=== PATIENT | female | born 1980 | race Caucasian/White ===

== ENCOUNTER 2024-05-26 13:52 | Emergency (ER) | payer MEDICAID, SELFPAY ==
[2024-05-26 13:53] VITALS: BMI 29.0
[2024-05-26 14:28] VITALS: BP 134/82; PULSE 75; RESP 16; TEMP 37.2; O2SAT 99
--- NOTE | 2024-05-26 15:11 | XR_ITS ---
Examination: Pelvic ultrasound, transabdominal, complete Technique: Transabdominal ultrasound of the pelvis performed using grayscale imaging Date and time of exam: May 26, 2024 1850 hrs. Indications: Foreign body in the vagina today Findings: Uterus 7.3 cm endometrial stripe 0.7 cm No foreign body seen Right ovary obscured by bowel gas Left ovary 2.2 cm arterial flow 25 mm cyst Impression: No foreign body depicted
--- NOTE | 2024-05-26 16:10 | PD.EDADULT ---
ED General RME/HPI General Chief complaint: General Adult/Misc Complain Stated complaint: STUCK TAMPON SINCE LAST NIGHT Time Seen by Provider: 05/26/24 14:14 Arrival date/time: 05/26/24 13:52 This is a 44 year old female with complaints of tampon being stuck in her vagina. Patient thinks she placed a tampon in last night and when she tried to remove it she could not. Pt thinks it went high in her vagina. Patient reports she does not emember removing it. Related Data Home Medications ?Medication ?Instructions ?Recorded ?Confirmed Trazodone Hcl (Trazodone) 100 mg PO HS ##0 04/16/09 Amitriptyline Hcl 25 mg PO QHS ##0 07/27/09 HYDROCODONE BITARTRATE/APAP (NORCO 10 mg PO Q4-6HRPRN ##0 07/27/09 [id number]) Propranolol Hcl * (INDERAL *) 10 mg PO BID ##0 07/27/09 Previous Rx's ?Medication ?Instructions ?Recorded motrin 600mg 1 tab PO q6hprn pain ##30 09/23/12 Allergies Allergy/AdvReac Type Severity Reaction Status Date / Time NKA* Allergy Uncoded 05/26/24 13:55 Review of Systems Review of Systems Systems Reviewed: All systems reviewed, normal except as documented Past Medical History Past Medical History Comments PMH COMMENT: DENIES ED Exam General General appearance: Present alert and in no apparent distress Head Head exam: Present atraumatic Eye Eye exam: Present normal appearance, PERRL and EOMI ENT ENT exam: Present normal exam, normal oropharynx and mucous membranes moist Neck Neck exam: Present normal inspection, full ROM and trachea midline Chest Chest inspection: Present normal inspection and symmetric chest wall rise Respiratory Respiratory exam: Present normal lung sounds bilaterally Cardiovascular Cardiovascular exam: Present regular rate, normal rhythm and normal heart sounds Abdominal Exam Abdominal exam: Present soft Speculum exam: Present vaginal bleeding and other (no foreign body noted ) Extremities Exam Extremities exam: Present normal inspection and full ROM Back Exam Back exam: Present normal inspection and full ROM Neurological Exam Neurological exam: Present alert, oriented X3 and CN II-XII intact Psychiatric Psychiatric exam: Present normal affect and normal mood Skin Skin exam: Present warm, dry, intact and normal color Course Quality Measures none Orders Category Date Time Status US pelvic complete Stat Exams 05/26/24 15:11 Completed CBC Stat Lab 05/26/24 16:28 Completed Comprehensive Metabolic Panel Stat Lab 05/26/24 16:28 Completed HCG,Qualitative Serum Stat Lab 05/26/24 16:28 Completed Vital Signs Vital signs: Vital Signs Temperature 98.9 F 05/26/24 14:28 Pulse Rate 75 05/26/24 14:28 Respiratory Rate 16 05/26/24 14:28 Blood Pressure 134/82 H 05/26/24 14:28 Pulse Oximetry (%) 99 05/26/24 14:28 Oxygen Delivery Method Room Air 05/26/24 14:28 [facility] Patient data External records reviewed:: [facility] previous records Clinical information provided by:: patient and none Social determinants that could affect healthcare access:: none Patient has the following chronic illnesses:: NONE How is presenting disease/condition affected by chronic disease/condition?: no chronic disease Evaluation data The following diagnostics were reviewed and interpreted by me:: lab results and radiology exam(s) Lab and/or radiology exams considered but not ordered:: NONE Interpretation Summary: SEE NOTE Medications Medications considered but not ordered:: NONE Medication administrations:: NONE Consultations Consultation(s) initiated? (list below): No Diagnosis Differential Diagnosis ED Complaint MDM: Foreign body in vagina, vaginal bleeding Most likely diagnosis given after review of the tests above:: Vaginal bleeding from menstrual cycle. Admission Indicated Admission indicated?: not indicated Explain why admission is indicated or not indicated:: NOT NEEDED Admission Request Was there a request for admission?: No Disposition Plan Disposition Plan: Discharge Discharge Attestation Discharge Attestation: The patient and all family members were given an opportunity to ask questions and understood the discharge instructions. Discharge instructions specifically effects, indications for sooner follow up or return to the emergency department, and the expected course of current diagnosis. Patient condition: Stable Medical Decision Making MDM Narrative MDM Narrative: Patient was set up for a pelvic exam. I assessed with speculum. Patient had vaginal bleeding. I was able to clean vaginal vault with some 4 x 4's to assess a better picture. All 4 x 4 wrist that I used for and were removed. I did not see a foreign body in the vagina. We were able to see the cervix with no issue. I had Collegue Jimi Santana PA also look with a different speculum. He also did not see any foreign body in the vagina. I ordered a pelvic ultrasound and it showed Findings: Uterus 7.3 cm endometrial stripe 0.7 cm No foreign body seen Right ovary obscured by bowel gas Left ovary 2.2 cm arterial flow 25 mm cyst Impression: No foreign body depicted Spoke to patient at length. I let her know that we were not able to see any foreign body in her vagina and ultrasound did not show anything. I let her know that we could order a CT scan of her pelvis to see if it has seen there. Patient states that she does not want a CT scan at this time. She reports that she will follow-up with her primary provider or come back to the emergency room if symptoms change or worsen. Encouraged her to make an appointment with her [employer]. Patient states she does not have 1 right now. Patient comfortable going home at this time. Differential Diagnosis Differential Diagnosis: Foreign body in vagina, vaginal bleeding Lab Data 05/26/24 16:28 05/26/24 16:28 Labs: Lab Results 05/26/24 Range/Units 16:28 WBC 10.2 (3.6-11.0) Thou/mm3 RBC 4.81 (4.00-5.20) Miln/mm3 Hgb 13.4 (12.0-16.0) g/dL Hct 41.1 (36.0-46.0) % MCV 85 (80-100) fL MCH 27.9 (25.0-35.0) pg MCHC 32.6 (31.0-37.0) g/dl RDW Std Deviation 41.6 (36.4-46.3) fL Plt Count 317 (140-440) Thou/mm3 Neut % (Auto) 70 (37-80) % Lymph % (Auto) 21 (10-50) % Centre % (Auto) 7 (0-12) % Eos % (Auto) 2 (0-10) % Baso % (Auto) 1 (0-2.5) % Neut # (Auto) 7.1 (1.8-7.7) Thou/mm3 Lymph # (Auto) 2.1 (1.0-4.8) Thou/mm3 Centre # (Auto) 0.7 (0.0-0.8) Thou/mm3 Eos # (Auto) 0.2 (0.0-0.5) Thou/mm3 Baso # (Auto) 0.1 (0.0-0.2) Thou/mm3 Immature Gran # (Auto) 0.05 H (0.00-0.00) Thou/mm3 Absolute Nucleated RBC 0.00 (0.00-0.00) Thou/mm3 Immature Gran % 1 H (0-0) % Nucleated RBC % 0 (0) /100 WBC Sodium 140 (136-145) mMol/L Potassium 4.4 (3.4-5.1) mMol/L Chloride 107 (98-107) mMol/L Carbon Dioxide 25.4 (20.0-31.0) mMol/L Anion Gap 8 (7-16) BUN 10 (9-23) mg/dL Creatinine 0.7 (0.6-1.3) mg/dL Estim Creat Clear Calc 112.8 (>60) mL/min eGFR > 60 (60 - ) See Note BUN/Creatinine Ratio 14 (12-20) Ratio Glucose 92 (74-106) mg/dL Calculated Osmolality 278 (275-295) Calcium 9.8 (8.3-10.6) mg/dL Corrected Calcium 9.8 (8.5-10.1) mg/dL Total Bilirubin 1.3 H (0.3-1.2) mg/dL AST 19 (0-34) U/L ALT 9 L (10-49) U/L Alkaline Phosphatase 66 (46-116) U/L Total Protein 7.7 (5.7-8.2) gm/dL Albumin 4.8 (3.5-5.0) gm/dL Globulin 2.9 (2.3-3.5) gm/dL Albumin/Globulin Ratio 1.7 (1.2-2.2) HCG, Qual Negative Discharge Plan Plan Patient Disposition: HOME (Self Care) Patient condition on transfer: Stable Prescriptions/Referrals Prescriptions/Med Rec: No Action Trazodone Hcl (Trazodone) 100 MG tablet 100 mg PO HS Qty: 0 Amitriptyline Hcl 25 MG tablet 25 mg PO QHS Qty: 0 HYDROCODONE BITARTRATE/APAP (NORCO 10/325) 1 TAB tablet 10 mg PO Q4-6HRPRN Qty: 0 Propranolol Hcl * (INDERAL *) 10 MG tablet 10 mg PO BID Qty: 0 motrin 600mg 1 tab PO q6hprn pain Qty: 30 0RF Referrals: No Primary/Family,Physician [Primary Care Provider] - In 1 week Problem List Clinical Impression: Foreign body of vagina, Vaginal bleeding Patient/Caregiver Discharge Instructions Discharge Activity: activity as tolerated Education Materials: ED FOREIGN BODY Vaginal Adult Additional Instructions: Please follow-up with primary provider in 1 to 2 days. Come back to the emergency room if symptoms change or worsen. Print Language: Mauritanian Stand Alone Forms: [employer] Award Info., Patient Portal Info Letter PA/ASSOCIATE DIRECTOR Supervising Physician PA/ASSOCIATE DIRECTOR Supervising Physician: nicola
[2024-05-26 16:40] LABS: Basophils # (Auto) 0.1 Thou/mm3 (0.0-0.2); Basophils % (Auto) 1 % (0-2.5); Eosinophils # (Auto) 0.2 Thou/mm3 (0.0-0.5); Eosinophils % (Auto) 2 % (0-10); Hematocrit 41.1 % (36.0-46.0); Hemoglobin 13.4 g/dL (12.0-16.0); Immature Granulocytes % (Auto) 1 % (0-0); Immature Granulocytes Auto 0.05 Thou/mm3 (0.00-0.00); Lymphocytes # (Auto) 2.1 Thou/mm3 (1.0-4.8); Lymphocytes % (Auto) 21 % (10-50); Mean Corpuscular HGB Conc 32.6 g/dl (31.0-37.0); Mean Corpuscular Hemoglobin 27.9 pg (25.0-35.0); Mean Corpuscular Volume 85 fL (80-100); Monocytes # (Auto) 0.7 Thou/mm3 (0.0-0.8); Monocytes % (Auto) 7 % (0-12); Neutrophils # (Auto) 7.1 Thou/mm3 (1.8-7.7); Neutrophils % (Auto) 70 % (37-80); Nucleated Red Blood Cell % 0 /100 WBC (0); Platelet Count 317 Thou/mm3 (140-440); RDW Standard Deviation 41.6 fL (36.4-46.3); Red Blood Count 4.81 Miln/mm3 (4.00-5.20); White Blood Count 10.2 Thou/mm3 (3.6-11.0)
[2024-05-26 16:59] LABS: Albumin, Serum 4.8 gm/dL (3.5-5.0); Albumin/Globulin Ratio 1.7 (1.2-2.2); Alkaline Phosphatase 66 U/L (46-116); Anion Gap 8 (7-16); Aspartate Amino Transferase 19 U/L (0-34); BUN/Creatinine Ratio 14 Ratio (12-20); Bilirubin,Total 1.3 mg/dL (0.3-1.2); Blood Urea Nitrogen 10 mg/dL (9-23); Calcium 9.8 mg/dL (8.3-10.6); Calcium (Corrected) 9.8 mg/dL (8.5-10.1); Carbon Dioxide 25.4 mMol/L (20.0-31.0); Chloride 107 mMol/L (98-107); Creatinine (Component) 0.7 mg/dL (0.6-1.3); Estimated Creatinine Clearance 112.8 mL/min (>60); Globulin 2.9 gm/dL (2.3-3.5); Glucose 92 mg/dL (74-106); HCG,Qualitative Serum Negative; Osmolality,Calculated 278 (275-295); Potassium 4.4 mMol/L (3.4-5.1); Sodium 140 mMol/L (136-145); Total Protein 7.7 gm/dL (5.7-8.2); eGFR > 60 See Note
[2024-05-26 17:07] LABS: Alanine Aminotransferase 9 U/L (10-49)
== END 2024-05-26 20:47 | disposition home or self-care (01) ==
PROVIDERS: Nurse Practitioner Family; Emergency Provider Emergency Medicine
DX: T19.2XXA Foreign body in vulva and vagina, initial encounter (principal); N93.9 Abnormal uterine and vaginal bleeding, unspecified; X58.XXXA Exposure to other specified factors, initial encounter
CPT/HCPCS: 36415; 76856; 80053; 81001; 84703; 85025; 99284